=== PATIENT | female | born 1985 | race Caucasian/White ===

== ENCOUNTER 2017-01-08 20:21 | Emergency (ER) | payer OTHER ==
[~2017-01-08] VITALS: Ht 167.6 cm; Wt 101.6 kg
[~2017-01-08 20:21] MED LIST: LEVAQUIN 7750 MG/151 PO; ZESTRIL10 MG PO
[2017-01-08 20:43] VITALS: BP 147/87
--- NOTE | 2017-01-08 22:07 | NUR ---
PT PRESENTS TO ER WITH C/O RT SIDED LOWER BACK PAIN [id number]. VISITED PCP AND WAS DX WITH ACUTE LOWER BACK PAIN WITHOUT SCIATICA HX OF HTN DENIES N/V/D; SKIN IS PINK/WARM/DRY; AAOX4 WITH EVEN AND STEADY GAIT; LUNGS CLEAR BL; HR EVEN AND REGULAR; PT DENIES ANY FEVER, CP, SOB, OR COUGH AT THIS TIME; PATIENT STATES PAIN OF 10/10 AT THIS TIME; VSS; PATIENT POSITIONED FOR COMFORT; HOB ELEVATED; BEDRAILS UP X2; BED DOWN. ER MD MADE AWARE OF PT STATUS.
--- NOTE | 2017-01-08 22:59 | NUR ---
DR FLOREZ AT BEDSIDE
[2017-01-08] MEDS ORDERED: KETOROLAC 30 MG/ML VIAL IVP ONE (23:05)
[2017-01-08] MEDS ORDERED: MORPHINE SULFATE 4 MG/ML SYR IVP ONE (23:05)
--- NOTE | 2017-01-08 23:20 | NUR ---
LABS DRAWN AT BEDSIDE.
--- NOTE | 2017-01-08 23:23 | NUR ---
PT TO CT VIA WC IN STABLE CONDITION.
--- NOTE | 2017-01-08 23:47 | NUR ---
PT RETURNED FROM CT IN STABLE CONDITION
[2017-01-09] MEDS ORDERED: cefTRIAXone 2,000 MG in DEXTROSE 5% 100 ML IV ONE
[2017-01-09] MEDS ORDERED: cefTRIAXone 2,000 MG VIAL ONE (00:39)
--- NOTE | 2017-01-09 00:46 | NUR ---
ABX STARTED, INFUSING W/O PROBLEMS.
[2017-01-09 01:33] VITALS: BP 115/80
--- NOTE | 2017-01-09 01:37 | NUR ---
Patient discharged with v/s stable. Written and verbal after care instructions given and explained. Patient alert, oriented and verbalized understanding of instructions. Ambulatory with steady gait. All questions addressed prior to discharge. ID band removed. Patient advised to follow up with PMD. Rx of TRAMADOL AND CIPRO given. Patient educated on indication of medication including possible reaction and side effects. Opportunity to ask questions provided and answered.
== END 2017-01-09 01:37 | disposition home or self-care (01) ==
LOC: MED 20:21
DX: N39.0 Urinary tract infection, site not specified (principal); I10 Essential (primary) hypertension
CPT/HCPCS: 36415; 72131; 80053; 81001; 81025; 85025; 87086; 96361; 96374; 96375; 99285; J0696; J1885; J2270

== ENCOUNTER 2017-02-11 23:47 | Emergency (ER) | payer OTHER ==
[~2017-02-11] VITALS: Ht 167.6 cm; Wt 107.0 kg
[2017-02-12 00:16] VITALS: BP 162/96
--- NOTE | 2017-02-12 00:42 | NUR ---
Patient ambulated to bed 05.
--- NOTE | 2017-02-12 00:43 | NUR ---
APATIENT PRESENTS TO ED WITH TOOTHACHE X 2 DAYS ON LEFT UPPER TOOTH . PT STATES SHE IS 3 AND A HALF MONTHS AND HAS BEEN TAKING AMOX 500MG FROM HER DENTIST UNTIL SHE SEE HIM IN EARLY FEBRUARY . PT DENIES N/V/D; SKIN IS PINK/WARM/DRY; AAOX4 WITH EVEN AND STEADY GAIT; LUNGS CLEAR BL; HR EVEN AND REGULAR; PT DENIES ANY FEVER, CP, SOB, OR COUGH AT THIS TIME; PATIENT STATES PAIN OF 10/10 AT THIS TIME; VSS; PATIENT POSITIONED FOR COMFORT; HOB ELEVATED; BEDRAILS UP X2; BED DOWN. ER MD MADE AWARE OF PT STATUS.
[2017-02-12] MEDS ORDERED: ACETAMINOPHEN EXTRA STRENGTH 500 MG TAB PO ONE (01:00)
[2017-02-12 01:21] VITALS: BP 147/89
--- NOTE | 2017-02-12 01:21 | NUR ---
Patient discharged with v/s stable. Written and verbal after care instructions given and explained. Patient alert, oriented and verbalized understanding of instructions. Ambulatory with steady gait. All questions addressed prior to discharge. ID band removed. Patient advised to follow up with PMD. Rx of TYLENOL 500MG given. Patient educated on indication of medication including possible reaction and side effects. Opportunity to ask questions provided and answered.
== END 2017-02-12 01:21 | disposition home or self-care (01) ==
LOC: MED 23:47
DX: O26.892 Other specified pregnancy related conditions, second trimester (principal); K08.89 Other specified disorders of teeth and supporting structures; I10 Essential (primary) hypertension; Z3A.14 14 weeks gestation of pregnancy

== ENCOUNTER 2018-03-19 01:35 | Emergency (ER) | payer OTHER ==
[~2018-03-19] VITALS: Ht 170.2 cm; Wt 122.5 kg
[~2018-03-19 01:35] MED LIST changes: -LEVAQUIN 7750 MG/151 PO; +LISI10TA11 PO; -ZESTRIL10 MG PO; +[UNRECOGNIZED DRUG - CODE] PO
[2018-03-19 01:36] VITALS: BP 115/83
--- NOTE | 2018-03-19 01:42 | NUR ---
TO BED # 3 AMBULATORY
--- NOTE | 2018-03-19 01:45 | NUR ---
32Y/F PT. PRESENTS TO ED WITH C/O DIFFICULTY BREATHING X 30 MINS. PT. POST PATUM, HX. HTN ON METHYL DOPA. AAO X4, GCS 15, AMBULATORY WITH STEADY GAIT. RESPIRATIONS ROOM AIR, LABORED, IRREGULAR AND TACYPNEA, RR 30 BPM, O 2 SAT 84%, PLACE ON O2 2LPM VIA NC, O2 SAT 95%. BL LUNG RHONCHI. SKIN WARM AND DRY. NO C/O PAIN AT THIS TIME. VSS, ER MD MADE AWARE OF PT. STATUS.
--- NOTE | 2018-03-19 01:49 | NUR ---
Dr. Falcon evaluating patient at bedside.
[2018-03-19] MEDS ORDERED: IPRATROPIUM 0.02% 0.5 MG/2.5 ML NEBU INH ONE (01:55)
[2018-03-19] MEDS ORDERED: ALBUTEROL 0.083% 2.5 MG/3 ML NEBU INH ONE (01:55)
--- NOTE | 2018-03-19 02:16 | NUR ---
Respiratory Therapist at bedside for respiratory intervention.
[2018-03-19 02:46] LABS: HEMATOCRIT 40.9 % (36-48); HEMOGLOBIN 13.4 g/dL (12.0-16.0); MEAN CORPUSCULAR HEMOGLOBIN 30 pg (27-31); MEAN CORPUSCULAR HGB CONC 33 g/dL (33-37); MEAN CORPUSCULAR VOLUME 90.8 fL (80-94); PLATELET COUNT (AUTO) 189 K/uL (140-450); RED CELL DISTRIBUTION WIDTH 13.6 % (11.6-13.7); WHITE BLOOD COUNT (AUTO) 6.2 K/uL (4.8-10.8)
[2018-03-19 02:51] LABS: APPEARANCE,URINE CLEAR (CLEAR); BILIRUBIN,URINE NEGATIVE (NEGATIVE); BLOOD, URINE TRACE-I (NEGATIVE); COLOR,URINE YELLOW (YELLOW); LEUKOCYTE ESTERASE ,URINE NEGATIVE (NEGATIVE); NITRITE, URINE NEGATIVE (NEGATIVE); UGLUCOSE NEGATIVE (NEGATIVE)
[2018-03-19 03:00] LABS: ALBUMIN 3.8 g/dL (3.4-5.0); ANION GAP 13.4 (8-16); CARBON DIOXIDE 27.4 mmol/L (21-32); CREATININE 0.8 mg/dL (0.6-1.3); TOTAL BILIRUBIN 0.5 mg/dL (0.0-1.0)
[2018-03-19 03:04] LABS: POTASSIUM 2.8 mmol/L (3.5-5.1)
[2018-03-19 03:09] LABS: LYMPHOCYTES % (MANUAL) 42 % (20-46); MONOCYTES % (MANUAL) 6 % (5-12)
[2018-03-19 03:16] LABS: RBC,URINE 0-5 (RARE) /HPF (0-5); WBC,URINE 0-5 (RARE) /HPF (0-5)
[2018-03-19] MEDS ORDERED: AZITHROMYCIN 500 MG in DEXTROSE 5% 250 ML IV ONE (03:35)
[2018-03-19] MEDS ORDERED: cefTRIAXone 1,000 MG VIAL ONE (03:41)
[2018-03-19] MEDS ORDERED: AZITHROMYCIN 500 MG INJ VIAL IV ONE (03:41)
--- NOTE | 2018-03-19 03:41 | NUR ---
PT RETURN FROM CT
--- NOTE | 2018-03-19 03:42 | NUR ---
Dr. Falcon re-evaluating patient at bedside.
--- NOTE | 2018-03-19 03:54 | NUR ---
Patient appears to be resting comfortably in bed. Vital Signs within normal limits. Respirations even and unlabored.
[2018-03-19] MEDS ORDERED: POTASSIUM CHLORIDE 10 MEQ TABER PO ONE (04:35)
--- NOTE | 2018-03-19 05:23 | NUR ---
Patient discharged with v/s stable. Written and verbal after care instructions given and explained. Patient alert, oriented and verbalized understanding of instructions. Ambulatory with steady gait. All questions addressed prior to discharge. ID band removed. Patient advised to follow up with PMD. Rx of ZITHROMAX Z-ROHAN 250 MG, ALBUTEROL 90 MCG/ACTUATION, ROBITUSSIN 10/100/5ML given. Patient educated on indication of medication including possible reaction and side effects. Opportunity to ask questions provided and answered.
[2018-03-19 05:24] VITALS: BP 130/80
== END 2018-03-19 05:23 | disposition home or self-care (01) ==
LOC: MED 01:35
DX: J84.9 Interstitial pulmonary disease, unspecified (principal); R06.03 Acute respiratory distress; I10 Essential (primary) hypertension; Z79.899 Other long term (current) drug therapy
CPT/HCPCS: 36415; 71045; 71275; 80053; 81001; 81025; 82550; 84484; 85025; 85379; 85610; 85730; 86886; 86900; 86901; 87040; 94640; 94760; 96365; 96368; 99285; J0456; J0696; J7613; J7644; Q9967; 93005

== ENCOUNTER 2022-04-23 10:47 | Emergency (ER) | payer OTHER ==
[~2022-04-23] VITALS: Ht 170.2 cm; Wt 117.9 kg
[~2022-04-23 10:47] MED LIST changes: +AMOX-999 PO; +LISI-487 PO; -LISI10TA11 PO; -[UNRECOGNIZED DRUG - CODE] PO
--- NOTE | 2022-04-23 10:47 | NUR ---
PT CLAIRE VIA GURNEY TO BED 12.
[2022-04-23 10:49] VITALS: BP 144/84
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
[2022-04-23] MEDS ORDERED: diazePAM 5 MG TAB PO ONE (11:30)
[2022-04-23] MEDS ORDERED: ACETAMINOPHEN EXTRA STRENGTH 500 MG TAB PO ONE (11:30)
[2022-04-23] MEDS ORDERED: NAPR-54 PO (12:18)
[2022-04-23] MEDS ORDERED: CYCL-711 PO (12:18)
--- NOTE | 2022-04-23 12:30 | NUR ---
Patient discharged with v/s stable. Written and verbal after care instructions given and explained. Patient alert, oriented and verbalized understanding of instructions. Ambulatory with steady gait. All questions addressed prior to discharge. ID band removed. Patient advised to follow up with PMD. Rx of FLEXERIL, NAPROXEN given. Patient educated on indication of medication including possible reaction and side effects. Opportunity to ask questions provided and answered.
== END 2022-04-23 12:30 | disposition home or self-care (01) ==
LOC: MED 10:47
DX: S16.1XXA Strain of muscle, fascia and tendon at neck level, initial encounter (principal); I10 Essential (primary) hypertension; Z90.49 Acquired absence of other specified parts of digestive tract; Z79.899 Other long term (current) drug therapy; Z79.1 Long term (current) use of non-steroidal anti-inflammatories (NSAID); Z79.2 Long term (current) use of antibiotics; V89.2XXA Person injured in unspecified motor-vehicle accident, traffic, initial encounter; Y93.89 Activity, other specified; Y92.410 Unspecified street and highway as the place of occurrence of the external cause; Y99.8 Other external cause status
CPT/HCPCS: 72125; 99284